=== PATIENT | female | born 1990 | race Caucasian/White ===

== ENCOUNTER 2023-06-11 23:04 | Observation (INO) | payer BC ==
[~2023-06-11] VITALS: Ht 165.1 cm; Wt 106.6 kg
[2023-06-13] MEDS ORDERED: PREN-543 PO (10:34)
== END 2023-06-12 14:05 | disposition home or self-care (01) ==
LOC: MLD 23:04
PROVIDERS: ADMIT Obstetrics & Gynecology; ATTEND Obstetrics & Gynecology
DX: O46.93 Antepartum hemorrhage, unspecified, third trimester (principal); Z20.822 Contact with and (suspected) exposure to COVID-19; O62.9 Abnormality of forces of labor, unspecified; O26.893 Other specified pregnancy related conditions, third trimester; R51.9 Headache, unspecified; Z3A.40 40 weeks gestation of pregnancy
CPT/HCPCS: 87426; G0378

== ENCOUNTER 2023-06-13 09:35 | Inpatient (IN) | payer BC ==
[~2023-06-13] VITALS: Ht 165.1 cm; Wt 106.6 kg
[2023-06-13] MEDS ORDERED: PREN-543 PO (10:34)
[2023-06-13] MEDS ORDERED: LIDOCAINE 1% 500 MG/ 50 ML VIAL INJ ONE (10:35)
[2023-06-13] MEDS ORDERED: OXYTOCIN 20 UNITS in LACTATED RINGERS 1,000 ML IV SCH (10:35)
[2023-06-13] MEDS ORDERED: LACTATED RINGERS 1,000 ML IV SCH (10:35)
[2023-06-13] MEDS ORDERED: LIDOCAINE 1% 500 MG/50 ML VIAL ONE (10:54)
[2023-06-13] MEDS ORDERED: OXYTOCIN 20 UNITS/LR PREMIX 1,000 ML IV ONE (10:54)
[2023-06-13 11:14] LABS: BASOPHILS % (AUTO) 0.2 % (0.0-2.0); EOSINOPHILS % (AUTO) 0.1 % (0.0-4.0); HEMATOCRIT 34.7 % (36-48); HEMOGLOBIN 11.3 g/dL (12.0-16.0); LYMPHOCYTES # (AUTO) 0.9 K/uL (2.5-16.5); LYMPHOCYTES % (AUTO) 9.9 % (20.5-51.1); MEAN CORPUSCULAR HEMOGLOBIN 27 pg (27-31); MEAN CORPUSCULAR HGB CONC 33 g/dL (33-37); MEAN CORPUSCULAR VOLUME 82.9 fL (80-94); MONOCYTES # (AUTO) 0.4 K/uL (0.8-1.0); MONOCYTES % (AUTO) 4.4 % (1.7-9.3); NEUTROPHILS # (AUTO) 7.4 K/uL (1.8-7.7); NEUTROPHILS % (AUTO) 85.4 % (42.2-75.2); PLATELET COUNT (AUTO) 199 K/uL (140-450); RED BLOOD CELL COUNT(AUTO) 4.19 MIL/uL (4.20-5.40); RED CELL DISTRIBUTION WIDTH 17.1 % (11.6-13.7); WHITE BLOOD COUNT (AUTO) 8.6 K/uL (4.8-10.8)
[2023-06-13 11:35] LABS: ALBUMIN 2.5 g/dL (3.4-5.0); ANION GAP 14.5 (8-16); CALCIUM 8.9 mg/dL (8.5-10.1); CARBON DIOXIDE 22.5 mmol/L (21-32); CREATININE 0.6 mg/dL (0.6-1.3); TOTAL BILIRUBIN 0.4 mg/dL (0.0-1.0); TOTAL PROTEIN, SERUM 6.8 g/dL (6.4-8.2)
[2023-06-13] MEDS ORDERED: OXYTOCIN 10 UNITS/ML VIAL IM PRN (12:40)
[2023-06-13] MEDS ORDERED: DOCUSATE SODIUM 100 MG GELCAP PO PRN (12:40)
[2023-06-13] MEDS ORDERED: MEASLES, MUMPS, AND RUBELLA 1 VIAL SQVAC ONE (12:40)
[2023-06-13] MEDS ORDERED: BENZOCAINE/MENTHOL 20%-0.5% 60 GM CAN TP PRN (12:40)
[2023-06-13] MEDS ORDERED: IBUPROFEN 800 MG TAB PO PRN (12:40)
[2023-06-13] MEDS ORDERED: METHYLERGONOVINE 0.2 MG/ML AMP IM PRN (12:40)
[2023-06-13] MEDS ORDERED: SIMETHICONE 80 MG TAB.CHEW PO PRN (12:40)
[2023-06-13] MEDS ORDERED: bisacodyL 5 MG TABEC PO PRN (12:40)
[2023-06-13] MEDS ORDERED: METHYLERGONOVINE 0.2 MG TAB PO PRN (12:40)
[2023-06-13] MEDS ORDERED: IBUPROFEN 600 MG TAB PO PRN (12:40)
[2023-06-13 13:04] LABS: APPEARANCE,URINE BLOODY (CLEAR); BILIRUBIN,URINE NEGATIVE (NEGATIVE); BLOOD, URINE 3+ (NEGATIVE); COLOR,URINE YELLOW (YELLOW); LEUKOCYTE ESTERASE ,URINE NEGATIVE (NEGATIVE); NITRITE, URINE NEGATIVE (NEGATIVE); PH,URINE 7.5 (5.0-9.0); PROTEIN,URINE 1+ (NEGATIVE); UGLUCOSE NEGATIVE (NEGATIVE); UROBILINOGEN,URINE 0.2 EU/dL (0.2 - 1)
[2023-06-13 13:19] LABS: BACTERIA,URINE 0-2 /HPF (None Seen); RBC,URINE 80-100 /HPF (0-5); SQUAMOUS EPITHELIAL CELL,UR 0-3 (FEW) /LPF (0-3 (FEW)); WBC,URINE 0-5 /HPF (0-5)
[2023-06-14 08:38] LABS: HEMATOCRIT 33.2 % (36-48); HEMOGLOBIN 10.9 g/dL (12.0-16.0)
== END 2023-06-14 18:25 | disposition home or self-care (01) | DRG 807 ==
LOC: MLD 09:35 → OBSVTOIN 09:35 → MFCC 12:40
PROVIDERS: ADMIT Obstetrics & Gynecology; ATTEND Obstetrics & Gynecology
PROC: 10E0XZZ Delivery of Products of Conception, External Approach (ICD-10-PCS; principal; 2023-06-13)
DX: O48.0 Post-term pregnancy (principal); Z37.0 Single live birth; O24.429 Gestational diabetes mellitus in childbirth, unspecified control; Z3A.40 40 weeks gestation of pregnancy
CPT/HCPCS: 36415; 59409; 80053; 81001; 85018; 85025; 86592; 86762; 86886; 86900; 86901; 87340; 87653-90; J2001; J2590